=== PATIENT | male | born 1950 | race Caucasian/White ===

== ENCOUNTER 2018-01-18 11:19 | Emergency (ER) | payer OTHER ==
[~2018-01-18] VITALS: Ht 182.9 cm; Wt 79.4 kg
[~2018-01-18 11:19] MED LIST: CATAFLAM50 MG PO; UROXATRAL10 MG PO; VOLTAREN100 GM TP
[2018-01-18] MEDS ORDERED: COZAAR50 MG PO (11:35)
[2018-01-18] MEDS ORDERED: FORTAMET500 MG PO (11:35)
[2018-01-18] MEDS ORDERED: TRILIPIX45 MG PO (11:36)
== END 2018-01-19 10:41 | disposition home or self-care (01) ==
LOC: ER 11:19
DX: E11.65 Type 2 diabetes mellitus with hyperglycemia (principal); J45.998 Other asthma; E86.0 Dehydration; J11.1 Influenza due to unidentified influenza virus with other respiratory manifestations

== ENCOUNTER 2018-02-20 10:00 | Outpatient (CLI) | payer OTHER ==
[~2018-02-20 10:00] MED LIST changes: +COZAAR50 MG PO; +FORTAMET500 MG PO; +TRILIPIX45 MG PO
== END 2018-02-20 12:00 | disposition home or self-care (01) ==
LOC: TOM 10:00
DX: J32.8 Other chronic sinusitis (principal)

== ENCOUNTER 2018-11-15 10:37 | Outpatient (CLI) | payer OTHER | END 2018-11-15 10:39 | disposition home or self-care (01) | LOC: TOM 10:37 | DX: N39.0 Urinary tract infection, site not specified (principal); R10.84 Generalized abdominal pain ==

== ENCOUNTER → 2019-05-08 | Outpatient (CLI) | payer OTHER | END | disposition home or self-care (01) | LOC: RAD 11:41 | DX: Z01.811 Encounter for preprocedural respiratory examination (principal); J16.8 Pneumonia due to other specified infectious organisms ==

== ENCOUNTER → 2020-10-22 09:13 | Outpatient (CLI) | payer OTHER | END | disposition home or self-care (01) | LOC: NUCLEAR 09:00 | PROVIDERS: ATTEND Internal Medicine Sports Medicine | DX: I50.1 Left ventricular failure, unspecified (principal); R53.1 Weakness ==

== ENCOUNTER 2022-02-24 09:51 | Outpatient (CLI) | payer OTHER | END 2022-02-24 10:01 | disposition home or self-care (01) | LOC: RX STUDY 09:51 | PROVIDERS: ATTEND Otolaryngology | DX: R13.10 Dysphagia, unspecified (principal) ==

== ENCOUNTER 2023-06-13 13:34 | Outpatient (CLI) | payer OTHER | END 2023-06-13 13:37 | disposition home or self-care (01) | LOC: NUCLEAR 13:34 | DX: C61 Malignant neoplasm of prostate (principal) ==

== ENCOUNTER 2023-07-11 07:33 | Outpatient (CLI) | payer OTHER | END 2023-07-11 07:35 | disposition home or self-care (01) | LOC: NUCLEAR 07:33 | PROVIDERS: ATTEND Internal Medicine | DX: I20.9 Angina pectoris, unspecified (principal) | CPT/HCPCS: 78452; 93017; A9500; J0153 ==